=== PATIENT | female | born 1945 ===

== ENCOUNTER 2023-07-23 06:28 | Outpatient (CLI) | payer OTHER ==
[2023-07-23 07:38] LABS: HEMATOCRIT 42.7 % (36.0-45.00); HEMOGLOBIN 14.6 g/dL (12.0-15.00); MEAN CELL VOLUME 82.6 fL (80.00-100.00); MEAN CORPUSCULAR HEMOGLOBIN 28.2 pg (27.00-32.0); MEAN CORPUSCULAR HGB CONC 34.2 g/dl (32.0-36.0); PLATELET COUNT 208 K/uL (150-450); RED BLOOD COUNT 5.16 M/uL (4.00-6.00)
[2023-07-23 08:29] LABS: % SATURACION 24.8 % (15-50); ALBUMIN 4.1 gm/dL (3.4-5.0); BILIRUBIN TOTAL 0.46 mg/dL (0.3-1.2); CALCIUM 9.8 mg/dL (8.5-10.1); CREATININE SERUM 1.15 mg/dL (0.55-1.02); FERRITIN 134.6 NG/ML (8-252); GFR 45.52; GLOBULINA 3.6 G/DL (2.4-3.5); POTASSIUM 4.46 mEq/L (3.5-5.1); TOTAL PROTEIN 7.7 gm/dL (6.4-8.2)
[2023-07-23 09:20] LABS: FOLIC ACID > 20.00 ng/ml (4.78-20)
[2023-07-24 10:08] LABS: TRANSFERIN 258 mg/dL (192-364)
[2023-07-24 12:11] LABS: MANUAL PLATELET COUNT 208
[2023-07-24 12:12] LABS: PLATELET ESTIMATE NORMAL (NORMAL)
[2023-07-24 14:07] LABS: kappa lambda r 1.23 (0.26-1.65); kappa light 30.8 mg/L (3.3-19.4)
== END 2023-07-23 06:29 | disposition home or self-care (01) ==
LOC: LAB 06:28
PROVIDERS: ATTEND Internal Medicine Hematology & Oncology
DX: D50.8 Other iron deficiency anemias (principal); R79.9 Abnormal finding of blood chemistry, unspecified; I10 Essential (primary) hypertension; R74.02 Elevation of levels of lactic acid dehydrogenase [LDH]; K76.89 Other specified diseases of liver; C90.00 Multiple myeloma not having achieved remission; D63.8 Anemia in other chronic diseases classified elsewhere; E78.2 Mixed hyperlipidemia; E03.8 Other specified hypothyroidism; D51.3 Other dietary vitamin B12 deficiency anemia